=== PATIENT | male | born 1960 | race Caucasian/White ===

== ENCOUNTER 2025-01-05 18:10 | Emergency (ER) | payer MEDICAID ==
[2025-01-05] MEDS: Doxycycline 100 MG Cap PO ONE (18:36)
== END 2025-01-05 18:40 | disposition home or self-care (01) ==
LOC: JP.ED 18:10
DX: S10.86XA Insect bite of other specified part of neck, initial encounter (principal); Z79.899 Other long term (current) drug therapy; Z88.8 Allergy status to other drugs, medicaments and biological substances; W57.XXXA Bitten or stung by nonvenomous insect and other nonvenomous arthropods, initial encounter
CPT/HCPCS: 99281; A9270; 99282

== ENCOUNTER 2025-05-26 12:10 | Emergency (ER) | payer MEDICAID | END 2025-05-26 13:00 | disposition home or self-care (01) | LOC: JP.ED 12:10 | DX: S30.861A Insect bite (nonvenomous) of abdominal wall, initial encounter (principal); Z88.0 Allergy status to penicillin; Z88.8 Allergy status to other drugs, medicaments and biological substances; Z79.899 Other long term (current) drug therapy; W57.XXXA Bitten or stung by nonvenomous insect and other nonvenomous arthropods, initial encounter | CPT/HCPCS: 99281; A9270 ==